=== PATIENT | female | born 1980 | race Asian ===

== ENCOUNTER → 2016-07-03 | Outpatient (CLI) | payer OTHER | END | disposition home or self-care (01) | LOC: EMPHLTH 09:59 | PROVIDERS: ATTEND Internal Medicine | DX: Z02.1 Encounter for pre-employment examination (principal) | CPT/HCPCS: 86706; 86735; 86762; 86765; 86787 ==

== ENCOUNTER → 2016-07-06 | Outpatient (CLI) | payer OTHER | END | disposition home or self-care (01) | LOC: EMPHLTH 09:56 | PROVIDERS: ATTEND Internal Medicine | DX: R76.11 Nonspecific reaction to tuberculin skin test without active tuberculosis (principal) ==

== ENCOUNTER 2017-01-15 11:41 | Emergency (ER) | payer OTHER ==
[~2017-01-15] VITALS: Ht 154.9 cm; Wt 67.7 kg
[2017-01-15] MEDS ORDERED: FLUT16H NASAL (11:56)
[2017-01-15] MEDS ORDERED: IBUPROFEN 800 MG TABLET PO ONE (13:30)
[2017-01-15 13:43] VITALS: BP 154/111
== END 2017-01-15 14:15 | disposition home or self-care (01) ==
LOC: EMS 11:41
DX: S50.12XA Contusion of left forearm, initial encounter (principal); S30.1XXA Contusion of abdominal wall, initial encounter; R03.0 Elevated blood-pressure reading, without diagnosis of hypertension; Y04.0XXA Assault by unarmed brawl or fight, initial encounter; Y93.89 Activity, other specified; Y92.89 Other specified places as the place of occurrence of the external cause; Y99.8 Other external cause status
CPT/HCPCS: 99283

== ENCOUNTER 2017-08-17 03:47 | Emergency (ER) | payer OTHER ==
[~2017-08-17] VITALS: Ht 154.9 cm; Wt 72.7 kg
[~2017-08-17 03:47] MED LIST: FLUT16H NASAL
[2017-08-17 04:31] LABS: BASOPHILS % (AUTO) 0.6 % (0.0-2.0); EOSINOPHILS % (AUTO) 4.2 % (1.0-6.0); LYMPHOCYTES # (AUTO) 2.4 K/uL (1.0-4.8); LYMPHOCYTES % (AUTO) 26.9 % (22.0-44.0); MEAN CORPUSCULAR HEMOGLOBIN 28.6 pg (26.0-34.0); MEAN CORPUSCULAR HGB CONC 34.2 G/dL (31.0-37.0); MEAN CORPUSCULAR VOLUME 84 fL (80-100); MONOCYTES # (AUTO) 0.8 K/uL (0.1-1.0); MONOCYTES % (AUTO) 8.7 % (2.0-9.0); NEUTROPHILS # (AUTO) 5.4 K/uL (1.8-7.7); NEUTROPHILS % (AUTO) 59.6 % (40.0-70.0); PLATELET COUNT (AUTO) 347 K/uL (150-450); RED BLOOD CELL COUNT(AUTO) 4.55 MIL/uL (4.00-5.20); RED CELL DISTRIBUTION WIDTH 13.4 % (11.5-14.5)
[2017-08-17 04:42] LABS: ANION GAP 9 mmol/L (8-16); CALCIUM, TOTAL 8.2 mg/dL (8.8-10.5); CARBON DIOXIDE 25 mmol/L (22-29); CHLORIDE 104 mmol/L (98-107); CREATININE 0.73 mg/dL (0.60-1.30); GLOMERULAR FILTR. RATE CALC > 60 mL/min (>60); GLUCOSE,RANDOM 125 mg/dL (70-110); POTASSIUM 3.5 mmol/L (3.5-5.1); SODIUM SERUM 138 mmol/L (136-145); UREA NITROGEN, BLOOD 14 mg/dL (7-18)
[2017-08-17 04:47] LABS: ALANINE AMINOTRANSFERASE 47 U/L (12-78); ALBUMIN 3.4 g/dL (3.4-5.0); ALKALINE PHOSPHATASE 82 U/L (46-116); ASPARTATE AMINOTRANSFERASE 25 U/L (15-37); BILIRUBIN,TOTAL 0.4 mg/dL (0.1-1.0); LIPASE 219 U/L (73-393); TOTAL PROTEIN, SERUM 6.6 g/dL (6.4-8.2)
[2017-08-17] MEDS ORDERED: FOSPHENYTOIN SODIUM 1,000 MGPE in SODIUM CHLORIDE 0.9% 100 ML IV ONE (05:00)
[2017-08-17] MEDS ORDERED: LORazepam 2 MG/ML VIAL IVP ONE (05:00)
[2017-08-17 06:17] VITALS: BP 123/74
== END 2017-08-17 06:23 | disposition home or self-care (01) ==
LOC: EMS 03:49
DX: R07.9 Chest pain, unspecified (principal)
CPT/HCPCS: 93005; 99285; J7050; Q2009

== ENCOUNTER 2019-02-06 22:41 | Emergency (ER) | payer OTHER ==
[~2019-02-06] VITALS: Ht 304.8 cm; Wt 76.0 kg
[2019-02-06 22:46] VITALS: BP 138/89
== END 2019-02-07 00:59 | disposition home or self-care (01) ==
LOC: EMS 22:43
DX: S43.402A Unspecified sprain of left shoulder joint, initial encounter (principal); I10 Essential (primary) hypertension; Z88.8 Allergy status to other drugs, medicaments and biological substances; Z91.013 Allergy to seafood; X58.XXXA Exposure to other specified factors, initial encounter; Y93.89 Activity, other specified; Y92.89 Other specified places as the place of occurrence of the external cause; Y99.8 Other external cause status

== ENCOUNTER 2019-07-18 15:50 | Emergency (ER) | payer OTHER ==
[~2019-07-18] VITALS: Ht 154.9 cm; Wt 77.3 kg
[2019-07-18 15:53] VITALS: BP 156/100
[2019-07-18] MEDS ORDERED: LOSA50TA37 PO (15:54)
== END 2019-07-18 16:37 | disposition home or self-care (01) ==
LOC: EMS 15:51
DX: J06.9 Acute upper respiratory infection, unspecified (principal); Z20.828 Contact with and (suspected) exposure to other viral communicable diseases; R03.0 Elevated blood-pressure reading, without diagnosis of hypertension
CPT/HCPCS: 87635

== ENCOUNTER 2019-09-09 21:00 | Emergency (ER) | payer OTHER ==
[~2019-09-09] VITALS: Ht 152.4 cm; Wt 79.5 kg
[~2019-09-09 21:00] MED LIST changes: -FLUT16H NASAL; +LOSA50TA37 PO
[2019-09-09 21:49] LABS: BASOPHILS % (AUTO) 0.8 % (0.0-2.0); EOSINOPHILS % (AUTO) 3.7 % (1.0-6.0); HEMATOCRIT 41.1 % (36-46); HEMOGLOBIN 13.9 g/dL (12.0-16.0); LYMPHOCYTES # (AUTO) 1.8 K/uL (1.0-4.8); LYMPHOCYTES % (AUTO) 27.4 % (22.0-44.0); MEAN CORPUSCULAR HGB CONC 33.8 G/dL (31.0-37.0); MEAN CORPUSCULAR VOLUME 86 fL (80-100); MONOCYTES # (AUTO) 0.9 K/uL (0.1-1.0); NEUTROPHILS # (AUTO) 3.6 K/uL (1.8-7.7); NEUTROPHILS % (AUTO) 55.1 % (40.0-70.0); PLATELET COUNT (AUTO) 348 K/uL (150-450); RED CELL DISTRIBUTION WIDTH 13.3 % (11.5-14.5)
[2019-09-09 21:59] LABS: ANION GAP 10 mmol/L (8-16); CALCIUM, TOTAL 8.5 mg/dL (8.8-10.5); CARBON DIOXIDE 24 mmol/L (22-29); CHLORIDE 104 mmol/L (98-107); CREATININE 0.81 mg/dL (0.60-1.30); GLOMERULAR FILTR. RATE CALC > 60 mL/min (>60); GLUCOSE,RANDOM 102 mg/dL (70-110); POTASSIUM 3.6 mmol/L (3.5-5.1); SODIUM SERUM 138 mmol/L (136-145); UREA NITROGEN, BLOOD 16 mg/dL (7-18)
[2019-09-09 22:01] LABS: PROTHROMBIN TIME 10.1 SEC (9.4-11.6)
[2019-09-09 22:09] LABS: B-TYPE NATRIURETIC PEPTIDE < 5 pg/mL (0-100)
[2019-09-09 22:24] LABS: ALANINE AMINOTRANSFERASE 57 U/L (12-78); ALBUMIN 3.9 g/dL (3.4-5.0); ALKALINE PHOSPHATASE 79 U/L (46-116); ASPARTATE AMINOTRANSFERASE 27 U/L (15-37); BILIRUBIN,TOTAL 0.6 mg/dL (0.1-1.0); CREATINE KINASE, TOTAL ONLY 75 U/L (26-192); HCG,QUANTITATIVE < 1 mIU/mL (0-6); TOTAL PROTEIN, SERUM 7.5 g/dL (6.4-8.2)
[2019-09-10 00:53] VITALS: BP 114/52
== END 2019-09-10 01:38 | disposition home or self-care (01) ==
LOC: EMS 21:05
DX: R07.89 Other chest pain (principal); R06.02 Shortness of breath; R42 Dizziness and giddiness; I10 Essential (primary) hypertension; Z88.8 Allergy status to other drugs, medicaments and biological substances; Z91.013 Allergy to seafood
CPT/HCPCS: 93005

== ENCOUNTER → 2019-11-30 | Outpatient (CLI) | payer OTHER | END | disposition home or self-care (01) | LOC: LABMN 06:08 | DX: Z20.828 Contact with and (suspected) exposure to other viral communicable diseases (principal) | CPT/HCPCS: U0003-CS ==

== ENCOUNTER 2020-02-16 00:45 | Emergency (ER) | payer OTHER ==
[~2020-02-16] VITALS: Ht 152.4 cm; Wt 77.3 kg
[2020-02-16 01:16] LABS: COVID AG,FIA SOURCE NASOPHARYNGEAL
[2020-02-16 02:05] LABS: INFLUENZA TYPE A NEGATIVE FOR TYPE A (NEGATIVE); INFLUENZA TYPE B NEGATIVE FOR TYPE B (NEGATIVE)
[2020-02-16 02:44] VITALS: BP 146/92
== END 2020-02-16 02:45 | disposition home or self-care (01) ==
LOC: EMS 00:46
DX: J34.89 Other specified disorders of nose and nasal sinuses (principal); R05 Cough; M79.10 Myalgia, unspecified site; I10 Essential (primary) hypertension; Z20.828 Contact with and (suspected) exposure to other viral communicable diseases; Z88.8 Allergy status to other drugs, medicaments and biological substances; Z91.013 Allergy to seafood
CPT/HCPCS: 87426; 87804; 99283; U0003

== ENCOUNTER → 2020-06-21 | Outpatient (CLI) | payer OTHER | END | disposition home or self-care (01) | LOC: LABMN 08:48 | PROVIDERS: ATTEND Internal Medicine | DX: R76.11 Nonspecific reaction to tuberculin skin test without active tuberculosis (principal) | CPT/HCPCS: 71045-TC ==